=== PATIENT | male | born 1970 | race Caucasian/White ===

== ENCOUNTER 2016-11-22 17:00 | Emergency (ER) | payer BC, OTHER ==
[~2016-11-22] VITALS: Ht 175.3 cm; Wt 90.3 kg
[~2016-11-22 17:00] MED LIST: Hydralazine Hcl PO; LEVO500T59 PO; LISI10TA2 PO; ONDA4TAB10 SL; TRAM50TA PO
[2016-11-22 17:19] VITALS: BP 126/58
[2016-11-22] MEDS ORDERED: BENZ100C PO (18:36)
[2016-11-22] MEDS ORDERED: LEVO500T59 PO (18:36)
[2016-11-22] MEDS ORDERED: PROAIR RESPICL90 MCG IH (18:36)
[2016-11-22] MEDS ORDERED: PRED50TA PO (18:36)
--- NOTE | 2016-11-22 18:37 | PHYS DOC ---
Past Medical History Past Medical History: High Cholesterol, Pancreatitis Additional Past Medical Histor: pacreatitis Past Surgical History: Other Additional Past Surgical Histo: rt foot Alcohol Use: None Drug Use: None Adult General Chief Complaint Chief Complaint: COUGH HPI HPI Patient is a 46 year old who presents with a productive cough, nasal congestion , body aches since yesterday. Patient states he has history of pneumonia. He states he feels similar to the last time he had pneumonia. Patient denies any fever. He states his was in the ED today being evaluated for dislodged PEG tube and he takes care of her. Patient denies any chest pain or shortness of breath Review of Systems Review of Systems Constitutional: see HPI Eyes: Denies change in visual acuity, redness, or eye pain [] HENT: nasal congestion Respiratory: cough Cardiovascular: No additional information not addressed in HPI [] GI: Denies abdominal pain, nausea, vomiting, bloody stools or diarrhea [] : Denies dysuria or hematuria [] Musculoskeletal: Denies back pain or joint pain [] Integument: Denies rash or skin lesions [] Neurologic: Denies headache, focal weakness or sensory changes [] Endocrine: Denies polyuria or polydipsia [] Allergies Allergies Allergies Coded Allergies Type Severity Reaction Last Updated Verified No Known Drug Allergies 07/04/14 No Physical Exam Physical Exam Constitutional: Well developed, well nourished, no acute distress, non-toxic appearance. [] HENT: Normocephalic, atraumatic, bilateral external ears normal, oropharynx moist, no oral exudates, patient is congested nasally Eyes: PERRLA, EOMI, conjunctiva normal, no discharge. [] Neck: Normal range of motion, no tenderness, supple, no stridor. [] Cardiovascular:Heart rate regular rhythm, no murmur [] Lungs & Thorax: Bilateral breath sounds clear to auscultation [] Abdomen: Bowel sounds normal, soft, no tenderness, no masses, no pulsatile masses. [] Skin: Warm, dry, no erythema, no rash. [] Back: No tenderness, no CVA tenderness. [] Extremities: No tenderness, no cyanosis, no clubbing, ROM intact, no edema. [] Neurologic: Alert and oriented X 3, normal motor function, normal sensory function, no focal deficits noted. [] Psychologic: Affect normal, judgement normal, mood normal. [] Current Patient Data Vital Signs Vital Signs Date Time Temp Pulse Resp B/P (MAP) Pulse Ox O2 Delivery O2 Flow Rate FiO2 11/22/16 17:19 98.7 81 20 97 Room Air 98.7 EKG EKG [] Radiology/Procedures Radiology/Procedures [] Course & Med Decision Making Course & Med Decision Making Pertinent Labs and Imaging studies reviewed. (See chart for details) This is a 46-year-old male patient presented to the ED today with a productive cough nasal congestion and body aches since yesterday. He states he has had similar symptoms when he had pneumonia. Chest x-ray interpreted by Dr. Veronica was suspicious for left lower lobe pneumonia. Patient was given prescription for Levaquin,Tessalon Perles prednisone and albuterol inhaler. He was also given prescription for Tessalon Perles. OTC decongestants recommended. Follow-up with PCP in one week. Instructed to return to the ED if symptoms worsen. Dragon Disclaimer Dragon Disclaimer This electronic medical record was generated, in whole or in part, using a voice recognition dictation system. Departure Departure Impression: Primary Impression: Community acquired pneumonia Additional Impression: Upper respiratory infection Disposition: 01 HOME, SELF-CARE Condition: STABLE Referrals: BAM MCBRIDE MD (PCP) Follow-up with your doctor in one week Patient Instructions: Pneumonia, Adult, Upper Respiratory Infection, Adult, [id number] Additional Instructions: You were seen for pneumonia. Please take the prescribed medicines as ordered. Ensure you complete your antibiotics. Come back to the ED at any point symptoms worsen or you unable to take your prescribed medicine. Follow-up with your doctor next week. Scripts Albuterol Sulfate (Proair Respiclick) 90 Mcg Aer.pow.ba 1 PUFF IH PRN Q6HRS Y for SHORTNESS OF BREATH, #1 INHALER Prov: MUTUNGAJOHNATHON [employer]CH[employer] 11/22/16 Benzonatate (TESSALON PERLE) 100 Mg Capsule 1 CAP PO TID, #30 CAP Prov: MUTUNGAJOHNATHON [employer]BI[employer] ARCHITECT 11/22/16 Prednisone (PREDNISONE) 50 Mg Tablet 1 TAB PO DAILY, #5 TAB Prov: MUTUNGA,JOHNATHON [employer]BI[employer] ARCHITECT 11/22/16 Levofloxacin (LEVAQUIN) 500 Mg Tablet 1 TAB PO DAILY, #7 TAB Prov: MUTUNGA,JOHNATHON MOBILE ARCHITECT 11/22/16 Problem Qualifiers Primary Impression: Community acquired pneumonia Laterality: left Lung location: lower lobe of lung Qualified Codes: J18.1 - Lobar pneumonia, unspecified organism Additional Impression: Upper respiratory infection URI type: unspecified URI Qualified Codes: J06.9 - Acute upper respiratory infection, unspecified JOHNATHON RMAIREZ [employer]BI[employer] ARCHITECT Nov 22, 2016 18:37
[2016-11-23 07:42] LABS: NEGATIVE OBC STREP NEG; POSITIVE OBC STREP POS
--- NOTE | 2016-11-23 09:02 | RAD ---
EXAM: CHEST 2 VIEWS History: Cough COMPARISON: 08/02/2014 TECHNIQUE: PA and lateral chest radiographs FINDINGS: The cardiomediastinal silhouette is within normal limits. Minimal linear left lung base atelectasis or infiltrate appears less prominent compared to prior exam. IMPRESSION: Minimal left lung base atelectasis or infiltrate appears less prominent compared to prior exam.
== END 2016-11-22 18:41 | disposition home or self-care (01) ==
LOC: ER 17:00
DX: J18.1 Lobar pneumonia, unspecified organism (principal); J06.9 Acute upper respiratory infection, unspecified; E78.00 Pure hypercholesterolemia, unspecified
CPT/HCPCS: 71020; 87070; 87880; 99285